=== PATIENT | female | born 1940 | race Caucasian/White ===

== ENCOUNTER 2017-01-05 15:57 | Observation (INO) | payer OTHER, BC ==
[~2017-01-05] VITALS: Ht 152.4 cm; Wt 71.2 kg
[~2017-01-05 15:57] MED LIST: ASPIRIN81 M1 PO; DIOVAN160 MG PO; HYDROCHLOROTHIA25 MG PO; MULTIVITAMIN PO; NASONEX17 GM NS; NORVASC5 MG PO; PROTONIX40 MG PO; VITAMIN B12 PO; VITAMIN D400 UNIT PO; ZOCOR20 MG PO
[2017-01-05 17:19] LABS: HEMATOCRIT 37.6 % (36.0-46.0); MCH 32.6 PG (29.0-34.0); MCHC 33.5 G/DL (30.0-36.0); MCV 97.2 FL (83-99); MEAN PLAT.VOLUME 9.7 uM^3 (9.5-12.4); PLATELET COUNT 251 K/uL (156-360); RBC DIS.WIDTH-CV 12.3 % (11.8-14.6); RBC DIS.WIDTH-SD 43.8 % (39-53); RED BLOOD COUNT 3.87 M/uL (3.80-5.20); WHITE BLOOD COUNT 5.8 K/uL (4.1-10.2)
[2017-01-05 17:24] LABS: CHLORIDE 98 mEq/L (99-109); POTASSIUM 3.7 mEq/L (3.7-5.4); SODIUM 133 mEq/L (136-147)
[2017-01-05 17:26] LABS: GLUCOSE 86 mg/dL (70-99)
[2017-01-05 17:27] LABS: ANION GAP 7 MEQ/L (2-14)
[2017-01-05 17:29] LABS: GFR ESTIMATE (CALCULATED) > 59 mL/min/
[2017-01-05 17:30] LABS: UREA NITROGEN (BUN) 21 mg/dL (9-23)
[2017-01-05 17:37] LABS: TROP-I INTERPRETATION NEGATIVE; TROPONIN-I < 0.01 ng/mL (0.0-0.30)
[2017-01-05] MEDS ORDERED: DIOVAN HCT 31 TABLE1 PO (18:23)
[2017-01-05] MEDS ORDERED: LO-DOSE ASPIRIN81 M2 PO (18:27)
[2017-01-05] MEDS ORDERED: LIPITOR80 MG PO (18:27)
[2017-01-05] MEDS ORDERED: NATURE'S TEARS15 M1 BOTH EYES (18:27)
[2017-01-05] MEDS ORDERED: CELEBREX200 MG PO (18:28)
[2017-01-05] MEDS ORDERED: FLONASE16 G1 BOTH NARES (18:28)
[2017-01-05] MEDS ORDERED: ULTRAM50 MG PO (18:29)
[2017-01-05] MEDS ORDERED: DAILY VALUE1 EACH PO (18:30)
[2017-01-05] MEDS ORDERED: TRAMADOL HCL50 MG PO (18:30)
[2017-01-05] MEDS ORDERED: B-121000 MC2 PO (18:32)
[2017-01-05] MEDS ORDERED: AZASITE2.5 ML BOTH EYES (18:32)
[2017-01-05] MEDS ORDERED: VITAMIN D31000 UNI2 PO (18:33)
[2017-01-05] MEDS ORDERED: SYSTANE GEL EYE10 ML BOTH EYES (18:34)
[2017-01-05 21:55] VITALS: BP 189/82
[2017-01-05 23:43] VITALS: BP 157/72
[2017-01-06 00:07] LABS: TROP-I INTERPRETATION NEGATIVE; TROPONIN-I < 0.01 ng/mL (0.0-0.30)
[2017-01-06 03:18] VITALS: BP 134/60
[2017-01-06 05:53] LABS: TROP-I INTERPRETATION NEGATIVE; TROPONIN-I < 0.01 ng/mL (0.0-0.30)
[2017-01-06 06:36] LABS: HDL CHOLESTEROL 53 MG/DL (Desirable>=50); LDL CHOLESTEROL 68 mg/dL (Desirable<100); NON-HDL CHOLESTEROL 75 mg/dL (Desirable<160); TOTAL CHOLESTEROL 128 mg/dL (Desirable<200); TRIGLYCERIDES 33 MG/DL (Normal: <150)
[2017-01-06 08:00] VITALS: BP 125/71
[2017-01-06] MEDS ORDERED: NITROSTAT0.4 MG SL (12:21)
[2017-01-06 12:32] VITALS: BP 122/61
== END 2017-01-06 13:15 | disposition home or self-care (01) ==
LOC: EME 15:57 → EDOF 19:46 → 5WEST 19:46 → EDOF 19:46 → 5WEST 21:28
PROVIDERS: Emergency Medicine; Physician Assistant Medical
DX: R07.89 Other chest pain (principal); I25.10 Atherosclerotic heart disease of native coronary artery without angina pectoris; Z95.5 Presence of coronary angioplasty implant and graft; I10 Essential (primary) hypertension; I25.2 Old myocardial infarction; K21.9 Gastro-esophageal reflux disease without esophagitis; Z90.12 Acquired absence of left breast and nipple; Z85.3 Personal history of malignant neoplasm of breast; I44.7 Left bundle-branch block, unspecified; K44.9 Diaphragmatic hernia without obstruction or gangrene; R60.0 Localized edema; M25.569 Pain in unspecified knee; G89.29 Other chronic pain; H04.129 Dry eye syndrome of unspecified lacrimal gland; E66.9 Obesity, unspecified; Z68.31 Body mass index [BMI] 31.0-31.9, adult; E87.1 Hypo-osmolality and hyponatremia; E78.5 Hyperlipidemia, unspecified; M19.90 Unspecified osteoarthritis, unspecified site
CPT/HCPCS: 71020; 80048; 80061; 83735; 84484; 85027; 93005; 99281; 99285; G0378; J0360; J1650; J2765

== ENCOUNTER 2018-04-19 13:26 | Observation (INO) | payer OTHER, BC ==
[~2018-04-19] VITALS: Ht 152.4 cm; Wt 74.2 kg
[~2018-04-19 13:26] MED LIST changes: +AZASITE2.5 ML BOTH EYES; +B-121000 MC2 PO; +CELEBREX200 MG PO; +DAILY VALUE1 EACH PO; +DIOVAN HCT 31 TABLE1 PO; +FLONASE16 G1 BOTH NARES; +LIPITOR80 MG PO; +LO-DOSE ASPIRIN81 M2 PO; +NATURE'S TEARS15 M1 BOTH EYES; +NITROSTAT0.4 MG SL; +SYSTANE GEL EYE10 ML BOTH EYES; +TRAMADOL HCL50 MG PO; +ULTRAM50 MG PO; +VITAMIN D31000 UNI2 PO
[2018-04-19 14:05] LABS: BASOPHIL (%) 0.3 % (0-1); EOSINOPHIL (%) 2.6 % (0-5); EOSINOPHIL COUNT 0.2 K/uL (0-0.3); HEMATOCRIT 35.6 % (36.0-46.0); HEMOGLOBIN 12.3 G/DL (11.9-15.5); IMMATURE GRANULOCYTE (%) 0.2 % (0.0-0.7); LYMPHOCYTE COUNT 1.3 K/uL (1.0-2.8); MCHC 34.6 G/DL (30.0-36.0); MCV 95.4 FL (83-99); MONOCYTE (%) 14.9 % (3-12); MONOCYTE COUNT 0.9 K/uL (0-0.8); NEUTROPHIL COUNT 3.4 K/uL (1.8-6.4); PLATELET COUNT 275 K/uL (156-360); RBC DIS.WIDTH-CV 12.3 % (11.8-14.6); RBC DIS.WIDTH-SD 42.8 % (39-53); RED BLOOD COUNT 3.73 M/uL (3.80-5.20); WHITE BLOOD COUNT 5.8 K/uL (4.1-10.2)
[2018-04-19 14:14] LABS: ALBUMIN 3.9 g/dL (3.2-4.8); CHLORIDE 94 mEq/L (99-109); POTASSIUM 3.5 mEq/L (3.7-5.4); SODIUM 130 mEq/L (136-147)
[2018-04-19 14:15] LABS: MAGNESIUM 1.9 mg/dL (1.3-2.7)
[2018-04-19 14:17] LABS: GLUCOSE 87 mg/dL (70-99); TOTAL PROTEIN 7.2 g/dL (6.4-8.3)
[2018-04-19 14:19] LABS: TOTAL BILIRUBIN 0.8 mg/dL (0.0-1.0)
[2018-04-19 14:20] LABS: ALKALINE PHOSPHATASE 78 IU/L (3-129)
[2018-04-19 14:21] LABS: CREATININE 0.9 mg/dL (0.6-1.3); GFR ESTIMATE (CALCULATED) > 59 mL/min/
[2018-04-19 14:22] LABS: AST (GOT) 26 IU/L (2-34); DIRECT BILIRUBIN 0.3 mg/dL (0.0-0.3); UREA NITROGEN (BUN) 17 mg/dL (9-23)
[2018-04-19 14:24] LABS: ALT (GPT) 23 IU/L (3-49)
[2018-04-19 14:25] LABS: TROP-I INTERPRETATION NEGATIVE; TROPONIN-I < 0.01 ng/mL (0.0-0.30)
[2018-04-19 19:26] LABS: APPEARANCE CLEAR ((CLEAR)); BILIRUBIN NEGATIVE; BLOOD NEGATIVE; COLOR STRAW ((YELLOW)); GLUCOSE (STRIP) NEGATIVE; KETONES NEGATIVE; LEUKOCYTES NEGATIVE; NITRITE NEGATIVE; PROTEIN (STRIP) NEGATIVE; UCUL ADDED? NO; UROBILINOGEN 0.2 MG/DL (0.2-1.0)
[2018-04-19] MEDS ORDERED: CELECOXIB200 MG PO (21:42)
[2018-04-19] MEDS ORDERED: LOSARTAN-HCTZ1 EAC1 PO (21:43)
[2018-04-19] MEDS ORDERED: IRBESARTAN300 MG PO (21:43)
[2018-04-19] MEDS ORDERED: HYDROCHLOROTHIA25 MG PO (21:43)
[2018-04-19] MEDS ORDERED: CITALOPRAM HBR10 MG PO (21:43)
[2018-04-19] MEDS ORDERED: LOPRESSOR25 MG PO (21:45)
[2018-04-19] MEDS ORDERED: AZELASTINE137 MCG/0. BOTH NARES (21:45)
[2018-04-19] MEDS ORDERED: FLUTICASONE PRO16 GM BOTH NARES (21:46)
[2018-04-19] MEDS ORDERED: LATANOPROST2.5 ML BOTH EYES (21:46)
[2018-04-19] MEDS ORDERED: PANTOPRAZOLE SO40 MG PO (21:47)
[2018-04-19] MEDS ORDERED: ATORVASTATIN CA80 MG PO (21:47)
[2018-04-19] MEDS ORDERED: DICLOFENAC SOD100 G1 TP (21:47)
[2018-04-19] MEDS ORDERED: VITAMIN B-6100 MG PO (21:49)
[2018-04-19] MEDS ORDERED: FISH OIL 1,0001 EAC7 PO (21:50)
[2018-04-19] MEDS ORDERED: TUMS500 MG PO (21:51)
[2018-04-19] MEDS ORDERED: SYSTANE NIGHTT3.5 GM BOTH EYES (21:51)
[2018-04-19] MEDS ORDERED: BENTYL10 MG PO (21:52)
[2018-04-19 23:02] VITALS: BP 185/89
[2018-04-19 23:10] LABS: TROP-I INTERPRETATION NEGATIVE; TROPONIN-I 0.13 ng/mL (0.0-0.30)
[2018-04-20 05:18] LABS: HEMOGLOBIN 11.1 G/DL (11.9-15.5); MCH 32.8 PG (29.0-34.0); MCHC 34.7 G/DL (30.0-36.0); MCV 94.7 FL (83-99); PLATELET COUNT 240 K/uL (156-360); RBC DIS.WIDTH-CV 12.1 % (11.8-14.6); RBC DIS.WIDTH-SD 42.5 % (39-53); RED BLOOD COUNT 3.38 M/uL (3.80-5.20); WHITE BLOOD COUNT 6.7 K/uL (4.1-10.2)
[2018-04-20 05:22] VITALS: BP 152/70
[2018-04-20 05:27] LABS: TROP-I INTERPRETATION NEGATIVE; TROPONIN-I 0.26 ng/mL (0.0-0.30)
[2018-04-20 05:35] LABS: ALBUMIN 3.1 G/DL (3.2-4.8); ALKALINE PHOSPHATASE 52 IU/L (3-129); ALT (GPT) 15 IU/L (3-49); AST (GOT) 23 IU/L (2-34); CHLORIDE 95 MEQ/L (99-109); CREATININE 0.6 MG/DL (0.6-1.3); GFR ESTIMATE (CALCULATED) > 59 mL/min/; POTASSIUM 3.3 MEQ/L (3.7-5.4); SODIUM 127 MEQ/L (136-147); TOTAL BILIRUBIN 0.6 MG/DL (0.0-1.0); TOTAL PROTEIN 5.6 G/DL (6.4-8.3); UREA NITROGEN (BUN) 10 mg/dL (9-23)
[2018-04-20 05:55] LABS: GLUCOSE 110 mg/dL (70-99)
[2018-04-20 07:00] VITALS: BP 132/65
[2018-04-20 12:14] VITALS: BP 130/97
[2018-04-20 16:21] LABS: C DIFF TOXIN NEGATIVE (NEGATIVE)
== END 2018-04-20 15:40 | disposition home or self-care (01) ==
LOC: EME 13:26 → EDOF 21:56 → 4SOUTH 21:56 → EDOF 21:56 → 4SOUTH 22:52
PROVIDERS: Emergency Medicine; Internal Medicine
DX: R42 Dizziness and giddiness (principal); R09.02 Hypoxemia; E87.6 Hypokalemia; E87.1 Hypo-osmolality and hyponatremia; I25.10 Atherosclerotic heart disease of native coronary artery without angina pectoris; I25.2 Old myocardial infarction; Z95.5 Presence of coronary angioplasty implant and graft; R11.2 Nausea with vomiting, unspecified; R19.7 Diarrhea, unspecified; E78.5 Hyperlipidemia, unspecified; I10 Essential (primary) hypertension; F41.9 Anxiety disorder, unspecified; I44.7 Left bundle-branch block, unspecified; Z79.82 Long term (current) use of aspirin; K21.9 Gastro-esophageal reflux disease without esophagitis
CPT/HCPCS: 70450; 70551; 71045; 71275; 80048; 80053; 80076; 81003; 83630; 83735; 83880; 84484; 85025; 85027; 85379; 87177; 87493; 93005; 93880; 94799; 99281; 99285; G0378; G8978 GP CH; G8979 GP CH; G8980 GP CH; G8987 GO CH; G8988 GO CH; G8989 GO CH; J1644; J2405; J7030; J7040